=== PATIENT | female | born 1970 | race American Indian/Alaskan Native ===

== ENCOUNTER 2018-12-26 15:31 | Emergency (ER) | payer OTHER ==
--- NOTE | 2018-12-26 16:25 | Emergency Department Report ---
ED Psych HPI - General Chief Complaint: Psych Stated Complaint: /1012 Time Seen by Provider: 12/26/18 16:05 Source: patient Mode of arrival: Ambulatory - History of Present Illness Initial Comments: Patient is a 48-year-old female that presents emergency with complaints of medi al mental evaluation. Patient was at the [facility] and the [facility] here for mental evaluation and medical clearance. Patient states that the staff at the [facility] were upset because she is able to speak with God. Patient states she is having audiovisual hallucinations. Patient denies suicidal or homicidal ideations. Patient denies chest pain or shortness of breath. Patient denies physical complaints. Patient's thoughts are disorganized. MD Complaint: feels depressed -: Sudden Associated Psychiatric Symptoms: racing thoughts, auditory hallucinations, visual hallucinations, delusions History of same: Yes Quality: constant Improves With: none Worsens With: none Associated Symptoms: denies other symptoms. denies: confusion, headache, shortness of breath, nausea, vomiting, syncope, insomnia Treatments Prior to Arrival: placed on mental he - Related Data Previous Rx's Medication Instructions Recorded Last Taken Type Sulfamethoxazole/Trimethoprim 1 each PO BID 10 Days #20 tablet 12/26/18 Unknown Rx [Bactrim DS TAB] Allergies Allergy/AdvReac Type Severity Reaction Status Date / Time No Known Allergies Allergy Unverified 12/26/18 16:06 ED Review of Systems ROS: Stated complaint: /1012 Other details as noted in HPI Constitutional: denies: chills, fever Eyes: denies: eye pain, eye discharge, vision change ENT: denies: ear pain, throat pain Respiratory: denies: cough, shortness of breath, wheezing Cardiovascular: denies: chest pain, palpitations Endocrine: no symptoms reported Gastrointestinal: denies: abdominal pain, nausea, diarrhea Genitourinary: denies: urgency, dysuria, discharge Musculoskeletal: denies: back pain, joint swelling, arthralgia Skin: denies: rash, lesions Neurological: denies: headache, weakness, paresthesias Psychiatric: depression, auditory hallucinations, visual hallucinations. denies: anxiety Hematological/Lymphatic: denies: easy bleeding, easy bruising ED Past Medical Hx - Past Medical History Previous Medical History?: Yes Hx Psychiatric Treatment: Yes - Surgical History Past Surgical History?: No - Family History Family history: no significant - Social History Smoking Status: Never Smoker Substance Use Type: None - Medications Home Medications: Home Medications Medication Instructions Recorded Confirmed Last Taken Type Sulfamethoxazole/Trimethoprim 1 each PO BID 10 Days #20 tablet 12/26/18 Unknown Rx [Bactrim DS TAB] ED Physical Exam - General Limitations: No Limitations General appearance: alert, in no apparent distress - Head Head exam: Present: atraumatic, normocephalic - Eye Eye exam: Present: normal appearance - ENT ENT exam: Present: mucous membranes moist - Neck Neck exam: Present: normal inspection - Respiratory Respiratory exam: Present: normal lung sounds bilaterally. Absent: respiratory distress - Cardiovascular Cardiovascular Exam: Present: regular rate, normal rhythm. Absent: systolic murmur, diastolic murmur, rubs, gallop - GI/Abdominal GI/Abdominal exam: Present: soft, normal bowel sounds - Extremities Exam Extremities exam: Present: normal inspection - Back Exam Back exam: Present: normal inspection - Neurological Exam Neurological exam: Present: alert, oriented X3 - Psychiatric Psychiatric exam: Present: depressed, flat affect - Expanded Psychiatric Exam Expanded Focused psych exam: Present: delusional, loose associations - Skin Skin exam: Present: warm, dry, intact, normal color. Absent: rash ED Course Vital Signs 12/26/18 15:57 Temperature 99.3 F Pulse Rate 85 Respiratory 18 Rate Blood Pressure 140/93 O2 Sat by Pulse 100 Oximetry - Reevaluation(s) Reevaluation #1: Discussed all results with the patient. Patient will remain in the ER. Patient is medically clear. 12/26/18 20:22 12/26/18 20:22 ED Medical Decision Making - Lab Data Result diagrams: 12/26/18 16:55 12/26/18 16:55 - Medical Decision Making She is a 48-year-old female presents for mental evaluation. Patient found to have acute psychosis. Patient had disorganized thoughts and delusions and hallucinations. Patient placed on 1013. Patient had labs done. Patient's labs unremarkable except for UTI. Patient given antibiotics. Patient also given outpatient prescription for antibiotics. Patient will remain in the ER. Patient is medically clear. Patient will remain in the ER on a 1013 until accepted to appropriate psychiatric facility. - Differential Diagnosis acute psychosis. Critical care attestation.: If time is entered above; I have spent that time in minutes in the direct care of this critically ill patient, excluding procedure time. ED Disposition Clinical Impression: Acute psychosis, Hallucination, Delusion UTI (urinary tract infection) Qualifiers: Urinary tract infection type: acute cystitis Hematuria presence: with hematuria Qualified Code(s): N30.01 - Acute cystitis with hematuria Disposition: DC/TX-65 PSY HOSP/PSY UNIT Is pt being admited?: No Does the pt Need Aspirin: No Condition: Stable Additional Instructions: Patient is medically cleared Prescriptions: Sulfamethoxazole/Trimethoprim [Bactrim DS TAB] 1 each PO BID 10 Days #20 tablet Time of Disposition: 20:20
[2018-12-26 17:11] LABS: Basophils # (Auto) 0.1 K/mm3 (0.0-0.1); Basophils % (Auto) 0.6 % (0.0-1.8); Eosinophils % (Auto) 0.1 % (0.0-4.3); Hematocrit 39.4 % (30.3-42.9); Hemoglobin 13.7 gm/dl (10.1-14.3); Lymphocytes # (Auto) 1.5 K/mm3 (1.2-5.4); Lymphocytes % (Auto) 17.4 % (13.4-35.0); Mean Corpuscular HGB Conc 35 % (30-34); Mean Corpuscular Volume 79 fl (79-97); Monocytes # (Auto) 0.9 K/mm3 (0.0-0.8); Monocytes % (Auto) 10.5 % (0.0-7.3); Platelet Count 292 K/mm3 (140-440); Red Blood Count 4.98 M/mm3 (3.65-5.03)
[2018-12-26 17:30] LABS: Alanine Aminotransferase 13 units/L (7-56); Albumin 4.7 g/dL (3.9-5); BUN/Creatinine Ratio 8; Blood Urea Nitrogen 5 mg/dL (7-17); Calcium 10.2 mg/dL (8.4-10.2); Hemolysis Index 3
[2018-12-26 20:00] LABS: Bilirubin,Urine NEG (Negative); Color,Urine Yellow (Yellow)
[2018-12-26 20:01] LABS: Bacteria,Urine 3+ /HPF (Negative); Blood,Urine NEG (Negative); Mucus,Urine FEW /HPF; Protein,Urine <15 mg/dL mg/dL (Negative); Urobilinogen,Urine < 2.0 mg/dL (<2.0)
[2018-12-26 20:02] LABS: HCG Qualitative,Urine Negative (Negative)
[2018-12-26 20:07] LABS: Amphetamine Screen,Urine PRESUMPTIVE NEGATIVE; Benzodiazepines Screen,Urine PRESUMPTIVE NEGATIVE; Cannabinoid Screen,Urine PRESUMPTIVE NEGATIVE; Cocaine Screen,Urine PRESUMPTIVE NEGATIVE; Methadone Screen,Urine PRESUMPTIVE NEGATIVE; Opiate Screen,Urine PRESUMPTIVE NEGATIVE
[2018-12-26] MEDS ORDERED: XYLOCAINE 1% MPF 5 mL INFILTRATI ONE (20:18)
[2018-12-26] MEDS ORDERED: ROCEPHIN IM ONE (20:18)
[2018-12-27] MEDS ORDERED: GEODON IM ONE ×2 (03:20→03:22)
--- NOTE | 2018-12-27 09:14 | Consultation ---
History of Present Illness - Reason for Consult Consult date: 12/27/18 Reason for consult: Mental Health Evaluation Requesting physician: CHRIS COLE III - Chief Complaint Chief complaint: "It's about God" - History of Present Psychiatric Illness 48 y.o. AA female who presented to the ER for bizarre behavior. Today the patient was disorganized during the assessment. She reference cheondoism content throughout the interview. She could not answer most questions logically. She was asked about her sleep cycle, she stated that her energy level prevent her from sleeping. She appeared to be responding to some type of stimuli. Overall, the patient is a poor historian. No gestures of SI/HI's. The patient may have been transferred to [facility] from [facility] (outpatient mental health facility). Medications and Allergies Allergies Allergy/AdvReac Type Severity Reaction Status Date / Time No Known Allergies Allergy Unverified 12/26/18 16:06 Home Medications Medication Instructions Recorded Confirmed Last Taken Type Sulfamethoxazole/Trimethoprim 1 each PO BID 10 Days #20 tablet 12/26/18 Unknown Rx [Bactrim DS TAB] Past psychiatric history - Past Medical History Past Medical History: other (Unable to obtain ) Past Surgical History: Other (Unable to obtain ) - past Psychiatric treatment and history psychiatric treatment history: Unable to obtain a psy hx. Unable to obtain a fam psy hx. - Social History Social history: other (Unable to obtain ) Mental Status Exam - Vital signs Last Vital Signs Temp 97.9 F 12/27/18 07:00 Pulse 113 H 12/27/18 07:00 Resp 18 12/27/18 07:00 BP 141/91 12/27/18 07:00 Pulse Ox 97 12/27/18 07:00 - Exam Narrative exam: MSE: Appearance: in hospital attire Behavior: regular eye contact Speech: hyper verbal Mood: labile Affect: congruent to mood Thought Process: disorganized, tangential Thought Content: denies SI/HI's and VH's, grandiose, hyper cheondoism Motor Activity: ambulatory Cognition: A/O x3 Insight: poor Judgment: poor Results Result Diagrams: 12/26/18 16:55 12/26/18 16:55 Abnormal lab results 12/26/18 12/26/18 12/26/18 Range/Units 16:55 16:55 16:55 MCHC 35 H (30-34) % RDW 19.0 H (13.2-15.2) % Mclennan % (Auto) 10.5 H (0.0-7.3) % Mclennan # 0.9 H (0.0-0.8) K/mm3 Seg Neutrophils % 71.4 H (40.0-70.0) % BUN 5 L (7-17) mg/dL Creatinine 0.6 L (0.7-1.2) mg/dL Glucose 120 H (65-100) mg/dL Total Protein 8.7 H (6.3-8.2) g/dL Salicylates < 0.3 L (2.8-20.0) mg/dL Acetaminophen (10.0-30.0) ug/mL 12/26/18 Range/Units 16:55 MCHC (30-34) % RDW (13.2-15.2) % Mclennan % (Auto) (0.0-7.3) % Mclennan # (0.0-0.8) K/mm3 Seg Neutrophils % (40.0-70.0) % BUN (7-17) mg/dL Creatinine (0.7-1.2) mg/dL Glucose (65-100) mg/dL Total Protein (6.3-8.2) g/dL Salicylates (2.8-20.0) mg/dL Acetaminophen < 5.0 L (10.0-30.0) ug/mL All other labs normal. Assessment and Plan Assessment and plan: Impression; Unspecified Mood DO with psy features. The patient is manic. Today the patient was disorganized during the assessment. UDS is negative DDx: Bipolar DO with psychosis Recommendation/Plan: Continue 1013 and start Zyprexa 5 mg PO HS for psycho sis/mood and Depakote 500 mg PO BID for mood. Attempted to discuss possible metabolic side effects of Zyprexa with the patient. Baseline A1c/Lipid Panel and TSH ordered. Dispo: The patient was referred to inpatient psy services. Staffed with Dr Marlene Santacruz.
[2018-12-27 09:27] LABS: Chol/HDL Ratio 2.24 %
--- NOTE | 2018-12-28 08:12 | Progress Note ---
Subjective - Reason for Consult Consult date: 12/28/18 Reason for consult: Psychiatry Follow-up - Chief Complaint Chief complaint: "things will change" 48 y.o. AA female who presented to the ER for bizarre behavior. Today the patient was still disorganized during the assessment. She appeared preoccupied throughout the interview. She stared upward with a regular blank rate. She had to be redirected several times to keep her on topic. Her answers to most questions reference advent content. No gestures of SI/HI's. Mental Status Exam - Vital signs Last Vital Signs Temp 98.1 F 12/28/18 01:12 Pulse 84 12/28/18 01:12 Resp 18 12/28/18 01:12 BP 132/86 12/28/18 01:12 Pulse Ox 100 12/28/18 01:12 - Exam Narrative exam: MSE: Appearance: in hospital attire Behavior: poor eye contact Speech: hyper verbal Mood: preoccupied Affect: congruent to mood Thought Process: disorganized, tangential Thought Content: no gestures of SI/HI's, grandiose, hyper advent Motor Activity: ambulatory Cognition: A/O x3 Insight: poor Judgment: poor Assessment and Plan Impression; Unspecified Mood DO with psy features. The patient is manic. Today the patient was still disorganized during the assessment. UDS is negative DDx: Bipolar DO with psychosis Recommendation/Plan: Continue 1013 and Zyprexa 5 mg PO HS for psychosis/mood and Depakote 500 mg PO BID for mood. Attempted to discuss possible metabolic side effects of Zyprexa with the patient. Dispo: The patient was referred to inpatient psy services. Will staff with Dr Marlene Santacruz.
[2018-12-28] MEDS ORDERED: GEODON IM ONE ×2 (08:43→08:47)
[2018-12-28] MEDS ORDERED: WATER FOR INJ Sterile (PF) 10 ML ONE (08:47)
[2018-12-28 15:29] VITALS: BP 107/77
== END 2018-12-28 17:40 ==
LOC: ED 15:31 → EEVIPCON 15:31 → ED 12-28 17:40
DX: F39 Unspecified mood [affective] disorder (principal); N39.0 Urinary tract infection, site not specified
CPT/HCPCS: 36415; 80053; 80061; 80164; 80307; 81001; 81025; 82150; 83036; 83690; 84443; 85025; 96372; 99285; J0696; J3486; 80320; G0480